=== PATIENT | female | born 1990 | race Hispanic/Latino ===

== ENCOUNTER 2017-07-17 05:52 | Emergency (ER) | payer OTHER ==
--- NOTE | 2017-07-17 06:28 | ED PDOC ---
Arrival/HPI <Елена Cat - Last Filed: 07/17/17 12:24> <Omid Zhang - Last Filed: 07/19/17 17:30> - General Chief Complaint: Medical Clearance Time Seen by Provider: 07/17/17 06:05 - History of Present Illness Narrative History of Present Illness (Text): 07/17/17 06:25 patient states she awoke with shortness of breath palpitations no chest pain no abdominal pain no fever no chills no dizziness complaining of tingling in her body (Omid Zhang) Past Medical History - Provider Review Nursing Documentation Reviewed: Yes - Psychiatric Hx Substance Use: No <Omid Zhang - Last Filed: 07/19/17 17:30> Family/Social History - Physician Review Nursing Documentation Reviewed: Yes Family/Social History: No Known Family HX (at anxious over the) Smoking Status: Never Smoked Hx Alcohol Use: No Hx Substance Use: No <Omid Zhang - Last Filed: 07/19/17 17:30> Allergies/Home Meds <Елена Cat - Last Filed: 07/17/17 12:24> <Omid Zhang - Last Filed: 07/19/17 17:30> Allergies/Adverse Reactions: Allergies No Known Allergies Allergy (Verified 07/17/17 05:59) Review of Systems - Physician Review All systems were reviewed & negative as marked: Yes - Review of Systems Constitutional: Normal Eyes: Normal ENT: Normal Respiratory: SOB Cardiovascular: Chest Pain, Palpitations (nerves) Gastrointestinal: Normal Genitourinary Female: Normal Musculoskeletal: absent: Back Pain, Neck Pain Skin: Normal Neurological: Normal Endocrine: Normal Hemo/Lymphatic: Normal Psychiatric: Normal <Omid Zhang - Last Filed: 07/19/17 17:30> Physical Exam Vital Signs Reviewed: Yes Temperature: Afebrile Blood Pressure: Normal Pulse: Tachycardic Respiratory Rate: Normal Appearance: Positive for: Well-Appearing, Non-Toxic, Comfortable Pain Distress: None Mental Status: Positive for: Alert and Oriented X 3 - Systems Exam Head: Present: Atraumatic, Normocephalic Pupils: Present: PERRL Extroacular Muscles: Present: EOMI Conjunctiva: Present: Normal Mouth: Present: Moist Mucous Membranes Neck: Present: Normal Range of Motion Respiratory/Chest: Present: Clear to Auscultation, Good Air Exchange. No: Respiratory Distress, Accessory Muscle Use Cardiovascular: Present: Regular Rate and Rhythm, Normal S1, S2, Tachycardic. No: Murmurs Abdomen: Present: Normal Bowel Sounds. No: Tenderness, Distention, Peritoneal Signs Back: Present: Normal Inspection Upper Extremity: Present: Normal Inspection. No: Cyanosis, Edema Lower Extremity: Present: Normal Inspection. No: Edema Neurological: Present: GCS=15, CN II-XII Intact, Speech Normal Skin: Present: Warm, Dry, Normal Color. No: Rashes Psychiatric: Present: Alert, Oriented x 3, Normal Insight, Normal Concentration <Omid Zhang - Last Filed: 07/19/17 17:30> Vital Signs Temp Pulse Resp BP Pulse Ox 07/17/17 12:00 98 F 97 H 18 136/79 98 07/17/17 06:06 122 H 20 146/102 H 100 07/17/17 06:00 97.7 F Medical Decision Making <Елена Cat - Last Filed: 07/17/17 12:24> - Transfer of Care Patient signed out to Dr:: jonathan labs and dispo <Omid Zhang - Last Filed: 07/19/17 17:30> ED Course and Treatment: pt feels better, ststed that although she doesn't chracterize herself as an anxious person she has been increasingly stressed and defitnitelyh dehydrated recently. Her shortness of breath is completely resolved and tachycardai improved s/p 1 L ivf. 07/17/17 10:57 (Елена Cat) - Lab Interpretations Lab Results: 07/17/17 06:10 07/17/17 06:10 Lab Results 07/17/17 11:20: Troponin I < 0.01 07/17/17 06:35: Influenza Typ A,B (EIA) Negative for flu a/b 07/17/17 06:10: PT 11.8, INR 1.03, APTT 31.0, D-Dimer, Quantitative 329 H 07/17/17 06:10: Sodium 142, Potassium 4.1, Chloride 103, Carbon Dioxide 26, Anion Gap 17, BUN 13, Creatinine 0.7, Est GFR ( Amer) > 60, Est GFR (Non- Af Amer) > 60, Random Glucose 108, Calcium 10.1, Total Bilirubin 0.6, AST 25, ALT 22, Alkaline Phosphatase 97, Lactate Dehydrogenase 367, Total Creatine Kinase 32 L, Troponin I < 0.01, Total Protein 7.9, Albumin 4.4, Globulin 3.5, Albumin/Globulin Ratio 1.2 07/17/17 06:10: WBC 8.6, RBC 6.28 H, Hgb 9.9 L, Hct 32.6 L, MCV 51.9 L, MCH 15.8 L, MCHC 30.4 L, RDW 18.7 H, Plt Count 288, Gran % 62.4, Lymph % (Auto) 28.0 , [place] % (Auto) 6.9 H, Eos % (Auto) 2.4, Baso % (Auto) 0.3, Gran # 5.37, Lymph # (Auto) 2.4, [place] # (Auto) 0.6, Eos # (Auto) 0.2, Baso # (Auto) 0.03 - RAD Interpretation Radiology Orders: 07/17/17 07:18 ANGIO CHEST PE PROTOCOL [CT] Stat - EKG Interpretation EKG Interpretation (Text): 07/17/17 06:30 EKG sinus tachycardia rate [address] segment (Omid Zhang) - Medication Orders Current Medication Orders: Discontinued Medications Sodium Chloride (Sodium Chloride 0.9%) 1,000 mls @ 999 mls/hr IV .Q1H1M STA Stop: 07/17/17 08:19 Last Admin: 07/17/17 07:38 Dose: 999 mls/hr eMAR Start Stop Document 07/17/17 07:38 LA (Rec: 07/17/17 07:38 [place] [facility] [id number]) Intravenous Solution Start Date 07/17/17 Start Time 07:38 Ipratropium Spring (Atrovent) 0.5 mg IH STAT STA Stop: 07/17/17 07:22 Last Admin: 07/17/17 07:39 Dose: 0.5 mg Lorazepam (Ativan) 0.5 mg PO ONCE ONE PRN Reason: Protocol Stop: 07/17/17 07:29 Last Admin: 07/17/17 07:39 Dose: 0.5 mg Disposition/Present on Arrival - Present on Arrival Any Indicators Present on Arrival: No - Disposition Have Diagnosis and Disposition been Completed?: Yes Disposition Time: 10:59 Patient Plan: Discharge <Елена Cat - Last Filed: 07/17/17 12:24> - Present on Arrival Any Indicators Present on Arrival: No History of DVT/PE: No History of Uncontrolled Diabetes: No Urinary Catheter: No History of Decub. Ulcer: No History Surgical Site Infection Following: None - Disposition Have Diagnosis and Disposition been Completed?: Yes Disposition Time: 07:00 <Omid Zhang - Last Filed: 07/19/17 17:30> - Disposition Diagnosis: Dehydration Disposition: HOME/ ROUTINE Condition: IMPROVED Discharge Instructions (ExitCare): Dehydration in Children (ED) Print Language: KOSOVAN Additional Instructions: Try and drink 2-3 L of water daily to avoid similar symptoms. Follow up with your priomary if you develop simlar symptoms again in the future. Prescriptions: Ipratropium [Atrovent HFA] 0.018 mg IH Q6 PRN #1 bottle PRN Reason: Shortness Of Breath Referrals: [facility] [place]] - Follow up with primary Forms: [employer] (Azeri)
[2017-07-17 06:42] LABS: BASO # 0.03 K/mm3 (0.0-2.0); BASO % 0.3 % (0.0-3.0); EOS # 0.2 (0.0-0.7); EOS % 2.4 % (1.5-5.0); GRAN # 5.37 (1.4-6.5); GRAN % 62.4 % (50.0-68.0); HEMOGLOBIN 9.9 g/dL (12.0-16.0); LYMPH # 2.4 (1.2-3.4); MEAN CELL VOLUME 51.9 fl (80.0-105.0); MEAN CORPUSCULAR HEMOGLOBIN 15.8 pg (25.0-35.0); MEAN CORPUSCULAR HGB CONC 30.4 g/dl (31.0-37.0); MONO # 0.6 (0.1-0.6); MONO % 6.9 % (1.0-6.0); PLATELET COUNT 288 10^3/uL (120.0-450.0); RBC 6.28 10^6/uL (3.5-6.1); RED CELL DISTRIBUTION WIDTH 18.7 % (11.5-14.5); WHITE BLOOD COUNT 8.6 10^3/ul (4.5-11.0)
[2017-07-17 06:53] LABS: ALB/GLOB RATIO 1.2 (1.1-1.8); ALBUMIN 4.4 g/dL (3.0-4.8); ALT/SGPT 22 U/L (7-56); AST/SGOT 25 U/L (14-36); BLOOD UREA NITROGEN 13 mg/dL (7-21); CALCIUM 10.1 mg/dL (8.4-10.5); GFR AFRICAN-AMERICAN > 60; GFR NON-AFRICAN AMERICAN > 60
[2017-07-17 06:59] LABS: INR 1.03 (0.93-1.08); PROTHROMBIN TIME 11.8 SECONDS (9.4-12.5)
[2017-07-17 07:04] LABS: TROPONIN I < 0.01 ng/mL
[2017-07-17] MEDS ORDERED: Iodixanol 320 MG/ML 100 ML BOTTLE IV ONE (07:37)
[2017-07-17] MEDS: Sodium Chloride 0.9% 1,000 ML IV STA (07:38)
[2017-07-17] MEDS: Ipratropium 0.02% Inhal Soln (0.5 mg/2.5 ml) UD IH STA (07:39)
--- NOTE | 2017-07-17 09:04 | CT ---
PROCEDURE: CT Chest with contrast (Pulmonary Angiogram) HISTORY: r/o PE COMPARISON: None available. TECHNIQUE: Axial computed tomography images were obtained of the chest in the pulmonary arterial phase of enhancement. Coronal and sagittal reformatted images were created and reviewed. Intravenous contrast dose: 100 cc of Visipaque Radiation dose: Total exam DLP = 292 mGy-cm. This CT exam was performed using one or more of the following dose reduction techniques: Automated exposure control, adjustment of the mA and/or kV according to patient size, and/or use of iterative reconstruction technique. FINDINGS: PULMONARY ARTERIES: Unremarkable. No pulmonary embolism. AORTA: No acute findings. No thoracic aortic aneurysm. LUNGS: Unremarkable. No nodule, mass or pulmonary consolidation. PLEURAL SPACES: Unremarkable. No effusion or pneuomothorax. HEART: Unremarkable. No cardiomegaly. No significant pericardial effusion. LYMPH NODES: No lymphadenopathy. BONES, CHEST WALL: Unremarkable. No fracture or destructive lesion OTHER FINDINGS: Unremarkable. IMPRESSION: Unremarkable CT pulmonary angiogram. No pulmonary embolus.
[2017-07-17 12:27] VITALS: BP 136/79; PULSE 97; RESP 18; TEMP 98; O2SAT 98
--- NOTE | 2017-07-17 12:59 | CARD ---
APPROVED REPORT EKG Measurement Heart [id number] <Conclusion> Sinus tachycardia Rightward axis ST-T Changes. Correlate Clinically.
== END 2017-07-17 12:45 | disposition home or self-care (01) ==
LOC: ED 05:52
DX: E86.0 Dehydration (principal)
CPT/HCPCS: 71275; 80053; 82550; 83615; 84484; 85025; 85378; 85610; 85730; 87804; 93005; 99283; J7040; Q9967